=== PATIENT | female | born 1990 | race Caucasian/White ===

== ENCOUNTER → 2017-09-28 | Outpatient (CLI) | payer OTHER | LOC: M RAD 07:37 | DX: R10.11 Right upper quadrant pain (principal) | CPT/HCPCS: J2805 ==

== ENCOUNTER → 2017-10-13 | Outpatient (REF) | payer OTHER ==
[2017-10-13 14:10] LABS: APPEARANCE, URINE HAZY (CLEAR); BACTERIA, URINE AUTO NEGATIVE (NEGATIVE); BILIRUBIN, URINE AUTO NEGATIVE (NEGATIVE); BLOOD, URINE BLOOD NEGATIVE (NEGATIVE); COLOR, URINE YELLOW (YELLOW); GLUCOSE, URINE (UA) AUTO NEGATIVE (NEGATIVE); KETONE, URINE AUTO NEGATIVE (NEGATIVE); LEUKOCYTE ESTERASE, URINE AUTO NEGATIVE (NEGATIVE); MUCUS, URINE SMALL (NEGATIVE); NITRITE, URINE AUTO NEGATIVE (NEGATIVE); PROTEIN, URINE AUTO NEGATIVE (NEGATIVE); RBC, URINE AUTO 0 /HPF (0-3); SPECIFIC GRAVITY URINE AUTO 1.023 (1.002-1.035); SQUAMOUS EPITHELIAL CELL UR AU 4 /HPF (0-6); UROBILINOGEN, URINE AUTO 0.2 mg/dL (0.0-2.0); WBC, URINE AUTO 1 /HPF (0-3)
== END ==
LOC: M LAB REF 13:09
DX: Z87.440 Personal history of urinary (tract) infections (principal); R35.0 Frequency of micturition

== ENCOUNTER 2017-12-04 09:31 | Day surgery (SDC) | payer OTHER ==
[2017-12-04] MEDS ORDERED: LR 1,000 ML IV (09:45)
[2017-12-04 09:55] LABS: HEMOGLOBIN 12.8 g/dl (12.0-15.5); MEAN CORPUSCULAR HEMOGLOBIN 28.5 pg (27.0-33.0); MEAN CORPUSCULAR HGB CONC 32.8 g/dl (32.0-36.5); MEAN CORPUSCULAR VOLUME 86.9 fl (80.0-96.0); PLATELET COUNT, AUTOMATED 271 10^3/uL (150-450); RED BLOOD COUNT 4.49 10^6/uL (4.00-5.40); RED CELL DISTRIBUTION WIDTH 14.6 % (11.5-14.5); WHITE BLOOD COUNT 4.3 10^3/uL (4.0-10.0)
[2017-12-04] MEDS ORDERED: METOCLOPRAMIDE INJ 10MG/2ML VIAL (J2765) As Ordered (10:13)
[2017-12-04] MEDS ORDERED: LIDOCAINE 2% INJ 100 MG/5 ML SDV (FOR ANES.) As Ordered (10:13)
[2017-12-04] MEDS ORDERED: dexameTHASONE 4 MG/ML 1ML VIAL (J1100) As Ordered (10:13)
[2017-12-04] MEDS ORDERED: ROCURONIUM BROMIDE 50 MG/5 ML VIAL As Ordered (10:13)
[2017-12-04] MEDS ORDERED: PROPOFOL 200 MG/20 ML VIAL As Ordered (10:13)
[2017-12-04] MEDS ORDERED: ONDANSETRON 4MG/2ML VIAL (J2405) As Ordered (10:13)
[2017-12-04] MEDS ORDERED: fentaNYL 100 MCG/2 ML INJECTION (J3010) As Ordered (10:14)
[2017-12-04] MEDS ORDERED: MIDAZOLAM INJ 2 MG/2 ML VIAL (J2250) As Ordered (10:14)
[2017-12-04 10:16] LABS: CONTROL LINE HCG INT CTR LINE PRESENT; HCG, SERUM QUALITATIVE NEGATIVE (NEGATIVE)
[2017-12-04] MEDS: METHYLENE BLUE 0.5% (5MG/ML) 10 ML AMP (PROVAYBLUE)(Q9968 PER 1MG) As Ordered (12:50)
[2017-12-04] MEDS: BUPIVACAINE HCL 0.25% 30 ML VIAL As Ordered (13:36)
[2017-12-04] MEDS ORDERED: PERCOCET 5MG/325MG TAB As Ordered (13:54)
[2017-12-04] MEDS ORDERED: PROMETHAZINE INJ 25 MG/ML VIAL (J2550) IV (14:00)
[2017-12-04] MEDS ORDERED: PERCOCET 5MG/325MG TAB PO (14:00)
[2017-12-04] MEDS ORDERED: NORCO, ANEXSIA 5/325MG TABLET (HYDROcodone/ACETAMINOPHEN) PO (14:15)
[2017-12-04] MEDS ORDERED: fentaNYL 100 MCG/2 ML INJECTION (J3010) IV (14:15)
[2017-12-04] MEDS ORDERED: ONDANSETRON 4MG/2ML VIAL (J2405) IV (14:15)
[2017-12-04] MEDS: PERCOCET 5MG/325MG TAB PO ×3 (14:17→23:34)
[2017-12-04] MEDS ORDERED: KETOROLAC 30 MG/ML VIAL (J1885) IV (15:00)
[2017-12-04] MEDS: LR 1,000 ML IV ×2 (15:14→15:58)
[2017-12-04] MEDS: ONDANSETRON 4MG/2ML VIAL (J2405) IV (15:58)
[2017-12-04] MEDS: DOCUSATE SODIUM 100 MG CAP PO (20:16)
[2017-12-04] MEDS: KETOROLAC 30 MG/ML VIAL (J1885) IV (20:16)
[2017-12-05] MEDS: KETOROLAC 30 MG/ML VIAL (J1885) IV ×2 (02:19→08:14)
[2017-12-05] MEDS: LR 1,000 ML IV (02:20)
[2017-12-05 06:47] LABS: HEMATOCRIT 29.2 % (36.0-47.0); IMMATURE GRANULOCYTE % 0.3 % (0-3.0); LYMPH # 1.1 10^3/uL (1.5-6.5); MEAN CORPUSCULAR HGB CONC 33.2 g/dl (32.0-36.5); MEAN CORPUSCULAR VOLUME 87.4 fl (80.0-96.0); MONO # 0.5 10^3/uL (0.0-0.8); MONO % 6.9 % (0.0-5.0); NEUTROPHILS % 78.8 % (36.0-66.0); PLATELET COUNT, AUTOMATED 231 10^3/uL (150-450); RED BLOOD COUNT 3.34 10^6/uL (4.00-5.40); RED CELL DISTRIBUTION WIDTH 14.7 % (11.5-14.5); WHITE BLOOD COUNT 7.7 10^3/uL (4.0-10.0)
[2017-12-05 06:50] LABS: HEMOGLOBIN 9.7 g/dl (12.0-15.5)
[2017-12-05] MEDS ORDERED: IBUPROFEN 800 MG TAB PO (22:00)
== END 2017-12-05 09:05 | disposition home or self-care (01) ==
LOC: M SDC 09:31 → M PED 14:46
DX: N92.6 Irregular menstruation, unspecified (principal); N72 Inflammatory disease of cervix uteri; D64.9 Anemia, unspecified; Z88.0 Allergy status to penicillin; Z79.899 Other long term (current) drug therapy
CPT/HCPCS: 58571

== ENCOUNTER 2020-02-03 11:54 | Emergency (ER) | payer BC, OTHER ==
[~2020-02-03] VITALS: Ht 154.9 cm; Wt 68.3 kg
[~2020-02-03 11:54] MED LIST: COLA100C5 PO; IBUP80TA PO; IRON65TA PO; OXYC1TAB23 PO
[2020-02-03 11:55] VITALS: BP 129/85
--- NOTE | 2020-02-03 12:41 | REP ---
Left lower extremity Duplex Doppler venous ultrasound: Real time compression and duplex Doppler interrogation of the left lower extremity deep venous system is performed. The left common femoral, superficial femoral and popliteal veins are fully compressible with transducer pressure and demonstrate normal spontaneous and phasic flow, without evidence of deep venous thrombosis. Impression: No evidence of deep venous thrombosis of the left lower extremity femoral popliteal venous system. Electronically Signed by Manoj Pillai MD 02/03/2020 12:32 P
== END 2020-02-03 13:06 | disposition home or self-care (01) ==
LOC: M ED 11:54
DX: S86.812A Strain of other muscle(s) and tendon(s) at lower leg level, left leg, initial encounter (principal); M79.662 Pain in left lower leg; Z88.0 Allergy status to penicillin; X58.XXXA Exposure to other specified factors, initial encounter; Y92.9 Unspecified place or not applicable; Y99.8 Other external cause status; Y93.9 Activity, unspecified

== ENCOUNTER 2020-09-22 11:28 | Emergency (ER) | payer BC ==
[~2020-09-22] VITALS: Ht 154.9 cm; Wt 67.3 kg
[2020-09-22 11:29] VITALS: BP 137/85
[2020-09-22] MEDS ORDERED: ACET1TAB55 PO (11:37)
[2020-09-22] MEDS ORDERED: IBUPROFEN 600MG TAB PO ONE (11:50)
== END 2020-09-22 12:08 | disposition home or self-care (01) ==
LOC: M ED 11:28
DX: R51.9 Headache, unspecified (principal); B34.9 Viral infection, unspecified; Z88.0 Allergy status to penicillin